=== PATIENT | female | born 1965 | race Caucasian/White ===

== ENCOUNTER 2022-02-12 07:55 | Emergency (ER) | payer OTHER ==
[2022-02-12 08:35] LABS: #Eosinphils 0.1 thou/uL (0.0-0.7); #Lymphocytes 1.7 thou/uL (1.20-3.40); #Monocytes 0.3 thou/uL (0.11-0.59); #Neutrophils 2.6 thou/uL (1.40-6.50); %Lymphocytes 35.3 % (21.0-51.0); %Monocytes 6.8 % (0.0-10.0); Hemoglobin 15.1 g/dL (12.0-16.0); Mean Corpuscular Hemoglobin 32.5 pg (27.0-31.0); Mean Corpuscular Volume 95.7 fL (78.0-98.0); Mean Platelet Volume 7.3 fL (7.4-10.4); Platelet Count 245 thou/uL (130-400); RBC Distribution Width 11.7 % (11.5-14.5); Red Blood Cell (RBC) Count 4.63 mill/uL (4.20-5.40); White Blood Cell (WBC) Count 4.7 thou/uL (4.8-10.8)
[2022-02-12 08:56] LABS: ALT (SGPT) 18 U/L (8-55); AST (SGOT) 23 U/L (5-34); Albumin 4.5 g/dL (3.5-5.0); Alkaline Phosphatase 79 U/L (40-110); Anion Gap 13 mmol/L (10-20); BUN (Urea Nitrogen) 17 mg/dL (9.8-20.1); Bilirubin, Total 0.3 mg/dL (0.2-1.2); Calc. Creatinine Clearance 0 mL/min (70-130); Calcium 9.7 mg/dL (7.8-10.44); Carbon Dioxide 25 mmol/L (22-29); Chloride 106 mmol/L (98-107); Estimated GFR 81; Globulin 3.2 g/dL (2.4-3.5); Glucose 104 mg/dL (70-105); Lipase 80 U/L (8-78); Potassium 4.1 mmol/L (3.5-5.1); Protein, Total 7.7 g/dL (6.0-8.3); Sodium 140 mmol/L (136-145)
[2022-02-12] MEDS ORDERED: Nitroglycerin 0.4 MG TAB 1 EACH ONE ×2 (09:02→09:12)
[2022-02-12] MEDS ORDERED: Aspirin Chewable 81 MG TAB ONE (09:02)
[2022-02-12] MEDS ORDERED: Acetaminophen 500 MG TAB ONE (09:18)
[2022-02-12] MEDS ORDERED: Mag-Al 1200 mg/1200 mg/30 ML UDCUP ONE (09:19)
[2022-02-12] MEDS ORDERED: Lidocaine Viscous Sol 2% 15 ml UD Cup ONE (09:19)
[2022-02-12 12:06] LABS: Troponin I Less than 0.010 ng/mL (< 0.028)
== END 2022-02-12 13:20 | disposition home or self-care (01) ==
LOC: ERS 07:55
DX: R07.89 Other chest pain (principal); R00.2 Palpitations
CPT/HCPCS: 36415; 71045; 80053; 83690; 83735; 84443; 84484; 85025; 85379; 93005; 94760